=== PATIENT | male | born 1990 | race Caucasian/White ===

== ENCOUNTER 2017-05-10 00:15 | Emergency (ER) | payer OTHER ==
[~2017-05-10] VITALS: Ht 177.8 cm; Wt 68.0 kg
[~2017-05-10 00:15] MED LIST: ACETAMINOPHEN-1 EAC1 PO; AUGMENTIN 875-1 EACH PO; NORCO 5-325 TA1 EACH PO
[2017-05-10] MEDS ORDERED: NAPROXEN500 MG PO (00:34)
== END 2017-05-10 01:33 | disposition home or self-care (01) ==
LOC: ED 00:15
DX: L50.9 Urticaria, unspecified (principal); F17.200 Nicotine dependence, unspecified, uncomplicated; Z91.048 Other nonmedicinal substance allergy status; Z79.899 Other long term (current) drug therapy
CPT/HCPCS: 96372; 99282; J1200; J7512

== ENCOUNTER 2017-07-04 16:04 | Emergency (ER) | payer SELFPAY ==
[~2017-07-04] VITALS: Ht 177.8 cm; Wt 68.0 kg
[~2017-07-04 16:04] MED LIST changes: +NAPROXEN500 MG PO
== END 2017-07-04 17:32 | disposition home or self-care (01) ==
LOC: ED 16:04
DX: T78.40XA Allergy, unspecified, initial encounter (principal)

== ENCOUNTER 2018-09-26 22:05 | Emergency (ER) | payer OTHER ==
[~2018-09-26] VITALS: Ht 177.8 cm; Wt 81.7 kg
[2018-09-26] MEDS ORDERED: TRAMADOL HCL50 MG PO (23:14)
== END 2018-09-26 23:23 | disposition home or self-care (01) ==
LOC: ED 22:05
DX: S90.425A Blister (nonthermal), left lesser toe(s), initial encounter (principal); S90.424A Blister (nonthermal), right lesser toe(s), initial encounter; F17.200 Nicotine dependence, unspecified, uncomplicated; Z91.018 Allergy to other foods; X58.XXXA Exposure to other specified factors, initial encounter
CPT/HCPCS: 99282

== ENCOUNTER 2019-02-16 19:56 | Emergency (ER) | payer OTHER ==
[~2019-02-16] VITALS: Ht 177.8 cm; Wt 74.8 kg
[~2019-02-16 19:56] MED LIST changes: +TRAMADOL HCL50 MG PO
[2019-02-16] MEDS ORDERED: BUSPIRONE HCL5 MG PO (20:08)
[2019-02-16] MEDS ORDERED: REMERON15 M1 PO (20:08)
[2019-02-16] MEDS ORDERED: CEPHALEXIN500 MG PO (20:40)
[2019-02-16] MEDS ORDERED: BACTRIM DS TAB1 EACH PO (20:40)
[2019-02-16] MEDS ORDERED: TRAMADOL HCL50 MG PO (20:40)
== END 2019-02-16 20:52 | disposition home or self-care (01) ==
LOC: ED 19:56
DX: L03.113 Cellulitis of right upper limb (principal); F17.200 Nicotine dependence, unspecified, uncomplicated; Z91.048 Other nonmedicinal substance allergy status; Z79.899 Other long term (current) drug therapy
CPT/HCPCS: 99283